=== PATIENT | female | born 1940 | race Caucasian/White ===

== ENCOUNTER 2020-02-19 08:35 | Emergency (ER) | payer MEDICARE, BC ==
[2020-02-19] MEDS ORDERED: Sodium Chloride 0.9% 10 ML Syringe FLUSH PRN (08:51)
--- NOTE | 2020-02-19 09:00 | EDM.PDOC ---
ED HPI GENERAL MEDICAL PROBLEM - General Chief Complaint: Chest Pain Stated Complaint: CHEST PAIN/SOB Time Seen by Provider: 02/19/20 09:00 Source of Information: Reports: Patient - History of Present Illness INITIAL COMMENTS - FREE TEXT/NARRATIVE: Sherry presents today, with a vague chest pressure, left-sided with mild radiation. She states she has not felt well for the past 2 weeks but is nonspecific in details of that. Epigastric discomfort is associated with this chest pressure sensation. It seemingly worsened at least, as a vague description that it actually developed this morning. Memory is not fully intact secondary of Alzheimer's dementia. , William, states her appetite has been going down slowly. Recent review of [place] chart for medication update 03 February 2020 is conducted . Onset: Today Duration: Hour(s): Location: Reports: Chest Quality: Reports: Dull, Pressure Severity: Moderate Improves with: Reports: None Worsens with: Reports: None Context: Reports: Activity Associated Symptoms: Reports: Confusion, Loss of Appetite, Shortness of Breath - Related Data Allergies Allergy/AdvReac Type Severity Reaction Status Date / Time No Known Allergies Allergy Verified 06/12/16 14:21 Home Meds: Home Meds Rosuvastatin Calcium [Crestor] 40 mg PO DAILY 06/09/16 [History] clonazePAM [Clonazepam] 0.5 mg PO BID PRN 06/09/16 [History] Diclofenac Sodium [IJD: Diclofenac Sodium] 75 mg PO .TWICE DAILY W MEALS #30 tab.ec 06/11/16 [Rx] Acetaminophen 500 - 1,000 mg PO Q4H PRN 02/19/20 [History] Donepezil HCl [Aricept] 10 mg PO BEDTIME 02/19/20 [History] Escitalopram Oxalate [Lexapro] 20 mg PO DAILY 02/19/20 [History] Melatonin 3 mg PO BEDTIME 02/19/20 [History] Memantine HCl [Namenda Xr] 21 mg PO DAILY 02/19/20 [History] Omeprazole 20 mg PO ACBREAKFAST 02/19/20 [History] buPROPion HCL [Bupropion Xl] 150 mg PO DAILY 02/19/20 [History] lisinopriL [Lisinopril] 10 mg PO DAILY 30 Days #30 tablet 02/19/20 [Rx] traZODone HCl [Trazodone HCl] 50 mg PO BEDTIME 02/19/20 [History] Past Medical History HEENT History: Reports: None Cardiovascular History: Reports: Aneurysm, Hypertension Respiratory History: Reports: None Gastrointestinal History: Reports: Gastritis, GERD Genitourinary History: Reports: UTI, Recurrent, Other (See Below) Other Genitourinary History: has to cath herself to pass urine, had mesh placed for fallen bladder 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: Endometrial Ablation, Endometriosis Musculoskeletal History: Reports: Back Pain, Chronic Neurological History: Reports: None, Alzheimers Disease Psychiatric History: Reports: Anxiety, Depression Endocrine/Metabolic History: Reports: Hypothyroidism Oncologic (Cancer) History: Reports: Cervix Dermatologic History: Reports: None - Infectious Disease History Infectious Disease History: Reports: Measles, Mumps - Past Surgical History Head Surgeries/Procedures: Reports: None HEENT Surgical History: Reports: None Cardiovascular Surgical History: Reports: None Respiratory Surgical History: Reports: None GI Surgical History: Reports: Colonoscopy, Hernia, Inguinal Female Surgical History: Reports: Hysterectomy, Other (See Below) Musculoskeletal Surgical History: Reports: Other (See Below) (Back surgeries, fusion) Oncologic Surgical History: Reports: Other (See Below) (Hysterectomy and treatments for cervical cancer and endometrial cancer.) - Past Imaging History Past Imaging History: Reports: Bone Scan, CAT Scan, Mammogram, Xray Social & Family History - Family History Family Medical History: Noncontributory - Caffeine Use Caffeine Use: Reports: Coffee, Soda Caffeine Use Comment: 4 drinks/day ED ROS GENERAL - Review of Systems Review Of Systems: See Below Constitutional: Reports: Weakness HEENT: Reports: No Symptoms Respiratory: Reports: Shortness of Breath Cardiovascular: Reports: Chest Pain Endocrine: Reports: No Symptoms GI/Abdominal: Reports: Abdominal Pain : Reports: No Symptoms Musculoskeletal: Reports: Back Pain, Leg Pain Skin: Reports: No Symptoms Neurological: Reports: Confusion, Other (memory issues) Psychiatric: Reports: Anxiety, Depression Hematologic/Lymphatic: Reports: No Symptoms Immunologic: Reports: No Symptoms ED EXAM, GENERAL - Physical Exam Exam: See Below Free Text/Narrative:: Alert oriented to the facility, cheerful conversing freely. HEENT is negative to discharge nor deformity. PERRLA no icterus no injection There is no involvement of the auditory canals with mild cerumen in the nonobstructive appearance. No tympanic membrane involvement. [place] moist mucous membranes with no erythema nor exudate. Dentition shows caries and erosion. Neck is soft supple no lymphadenopathy, I do not appreciate any JVD nor carotid bruit. Thorax is slightly diminished at the bases with no wheezes no crackles. Generalized tenderness not specific to palpation nor location is acknowledged. Cardiac is S1-S2 grade 1 systolic murmur heard at the base. Abdomen is soft bowel sounds are present there is tenderness to the epigastric as well as upper left and mid region to palpation. There is no tenderness to percussion. Mild tenderness in the right upper quadrant to deep inspiration but is limited. There is no lower quadrant pain no rebound tenderness. There is trace edema to the lower extremities nonpitting in nature skin is warm and dry. She moves her extremities about with no difficulty radial pulse correlates with apical heart rate. When asked specifically of her discomfort she states she is unable to point to the area of concern as it is "somewhat all over." EKG INTERPRETATION EKG Date: 02/19/20 Time: 08:49 Comparison: Other: (Prior images not available for visual comparison but waveform interpretation shows no significant changes in the previous interpretation by Dr. Dali Muhammad on 07-24-2016) Course - Vital Signs Last Recorded V/S: Last Vital Signs Temp 36.9 C 02/19/20 09:03 Pulse 69 02/19/20 09:03 Resp 20 02/19/20 09:03 BP 178/90 H 02/19/20 11:40 Pulse Ox 95 02/19/20 09:03 - Orders/Labs/Meds Orders: Active Orders 24 hr Category Date Time Status EKG Documentation Completion [RC] ASDIRECTED Care 02/19/20 08:52 Active Peripheral IV Care [RC] . DIRECTED Care 02/19/20 08:52 Active CULTURE URINE [RM] Stat Lab 02/19/20 10:03 Received Sodium Chloride 0.9% [Saline Flush] Med 02/19/20 08:51 Active 10 ml FLUSH Q8HR PRN Peripheral IV Insertion Adult [OM.PC] Routine Oth 02/19/20 08:51 Ordered EKG 12 Lead [EK] Stat Ther 02/19/20 08:51 Ordered Medication Orders Sodium Chloride (Saline Flush) 10 ml FLUSH Q8HR PRN PRN Reason: keep vein open Last Admin: 02/19/20 08:57 Dose: 10 ml Documented by: RACHEL Labs: Laboratory Tests 02/19/20 02/19/20 02/19/20 Range/Units 08:57 08:57 08:57 WBC 3.76 L (5.00-10.00) 10^3/uL RBC 4.74 (3.80-5.50) 10^6/uL Hgb 13.6 (12.0-16.0) g/dL Hct 42.1 (37.0-47.0) % MCV 88.8 (82.0-92.0) fL MCH 28.7 (27.0-31.0) pg MCHC 32.3 (32.0-36.0) g/dL RDW 12.7 (11.5-14.5) % Plt Count 179 (150-400) 10^3/uL MPV 11.4 H (7.4-10.4) fL Immature Gran % (Auto) 0.3 (0.0-5.0) % Neut % (Auto) 61.3 (50.0-70.0) % Lymph % (Auto) 23.7 (20.0-40.0) % [place] % (Auto) 9.6 H (2.0-8.0) % Eos % (Auto) 4.0 H (1.0-3.0) % Baso % (Auto) 1.1 H (0.0-1.0) % Neut # (Auto) 2.31 L (2.50-7.00) 10^3/uL Lymph # (Auto) 0.89 L (1.00-4.00) 10^3/uL [place] # (Auto) 0.36 (0.10-0.80) 10^3/uL Eos # (Auto) 0.15 (0.10-0.30) 10^3/uL Baso # (Auto) 0.04 (0.00-0.10) 10^3/uL Immature Gran # (Auto) 0.01 (0.00-0.50) 10^3/uL D-Dimer, Quantitative 181 (<400) ng/mL Sodium 143 (136-145) mmol/L Potassium 4.3 (3.3-5.3) mmol/L Chloride 108 (98-115) mmol/L Carbon Dioxide 27.6 (21.0-32.0) mmol/L Anion Gap 11.7 (5-15) mmol/L BUN 20 (6-25) mg/dL Creatinine 0.78 (0.51-1.17) mg/dL Est Cr Clr Drug Dosing 51.33 mL/min Estimated GFR (MDRD) > 60 mL/min Glucose 97 (75 - 99) mg/dL Calcium 8.2 L (8.7-10.3) mg/dL Total Bilirubin 0.4 (0.2-1.0) mg/dL AST 24 (15-37) U/L ALT 20 (12-78) U/L Alkaline Phosphatase 59 (46-116) IU/L Creatine Kinase 133 (26-276) U/L CK-MB (CK-2) 1.60 (0.00-4.30) ng/mL Troponin I 0.06 (0.00-0.070) ng/mL B-Natriuretic Peptide 62 (0-100) pg/mL Total Protein 6.7 (6.4-8.2) g/dL Albumin 3.26 (3.00-4.80) g/dL Specimen Type Urine Color (YELLOW) Urine Appearance (CLEAR) Urine pH (5.0-9.0) Ur Specific [place] (1.005-1.030) Urine Protein (NEGATIVE) mg/dL Urine Glucose (UA) (NEGATIVE) mg/dL Urine Ketones (NEGATIVE) mg/dL Urine Occult Blood (NEGATIVE) Urine Nitrite (NEGATIVE) Urine Bilirubin (NEGATIVE) Urine Urobilinogen (0.2-1.0) E.U./dL Ur Leukocyte Esterase (NEGATIVE) Urine RBC (0-5) /HPF Urine WBC (0-5) /HPF Ur Epithelial Cells /LPF Urine Bacteria (NONE TO FEW) /HPF 02/19/20 Range/Units 10:03 WBC (5.00-10.00) 10^3/uL RBC (3.80-5.50) 10^6/uL Hgb (12.0-16.0) g/dL Hct (37.0-47.0) % MCV (82.0-92.0) fL MCH (27.0-31.0) pg MCHC (32.0-36.0) g/dL RDW (11.5-14.5) % Plt Count (150-400) 10^3/uL MPV (7.4-10.4) fL Immature Gran % (Auto) (0.0-5.0) % Neut % (Auto) (50.0-70.0) % Lymph % (Auto) (20.0-40.0) % [place] % (Auto) (2.0-8.0) % Eos % (Auto) (1.0-3.0) % Baso % (Auto) (0.0-1.0) % Neut # (Auto) (2.50-7.00) 10^3/uL Lymph # (Auto) (1.00-4.00) 10^3/uL [place] # (Auto) (0.10-0.80) 10^3/uL Eos # (Auto) (0.10-0.30) 10^3/uL Baso # (Auto) (0.00-0.10) 10^3/uL Immature Gran # (Auto) (0.00-0.50) 10^3/uL D-Dimer, Quantitative (<400) ng/mL Sodium (136-145) mmol/L Potassium (3.3-5.3) mmol/L Chloride (98-115) mmol/L Carbon Dioxide (21.0-32.0) mmol/L Anion Gap (5-15) mmol/L BUN (6-25) mg/dL Creatinine (0.51-1.17) mg/dL Est Cr Clr Drug Dosing mL/min Estimated GFR (MDRD) mL/min Glucose (75 - 99) mg/dL Calcium (8.7-10.3) mg/dL Total Bilirubin (0.2-1.0) mg/dL AST (15-37) U/L ALT (12-78) U/L Alkaline Phosphatase (46-116) IU/L Creatine Kinase (26-276) U/L CK-MB (CK-2) (0.00-4.30) ng/mL Troponin I (0.00-0.070) ng/mL B-Natriuretic Peptide (0-100) pg/mL Total Protein (6.4-8.2) g/dL Albumin (3.00-4.80) g/dL Specimen Type [place] Urine Color Yellow (YELLOW) Urine Appearance Slightly cloudy H (CLEAR) Urine pH 7.0 (5.0-9.0) Ur Specific [place] 1.025 (1.005-1.030) Urine Protein Negative (NEGATIVE) mg/dL Urine Glucose (UA) Negative (NEGATIVE) mg/dL Urine Ketones Negative (NEGATIVE) mg/dL Urine Occult Blood Trace-intact H (NEGATIVE) Urine Nitrite Positive H (NEGATIVE) Urine Bilirubin Negative (NEGATIVE) Urine Urobilinogen 0.2 (0.2-1.0) E.U./dL Ur Leukocyte Esterase Small H (NEGATIVE) Urine RBC 5-10 H (0-5) /HPF Urine WBC 20-30 H (0-5) /HPF Ur Epithelial Cells Not seen /LPF Urine Bacteria Many H (NONE TO FEW) /HPF Meds: Medications Generic Name Dose Route Start Last Admin Trade Name Freq PRN Reason Stop Dose Admin Sodium Chloride 10 ml 02/19/20 08:51 02/19/20 08:57 Saline Flush FLUSH 10 ml Q8HR PRN Administration keep vein open Discontinued Medications Generic Name Dose Route Start Last Admin Trade Name Freq PRN Reason Stop Dose Admin Lisinopril 10 mg 02/19/20 11:35 02/19/20 11:40 Prinivil PO 02/19/20 11:36 10 mg ONETIME ONE Administration - Re-Assessments/Exams Free Text/Narrative Re-Assessment/Exam: 02/19/20 10:27 With normal laboratory analysis returning EKG showing past cardiac involvement likely, her dementia leaves room and the historical component for details. Secondary of continued abdominal discomfort and a history of decrease in appetite we will perform CT the abdomen pelvis with contrast to rule out any causation factors. Departure - Departure Time of Disposition: 11:56 Disposition: Home, Self-Care 01 Condition: Good Clinical Impression: Abdominal pain, Alzheimer's dementia, Self-catheterizes urinary bladder, Hypertension, Diverticulosis of large intestine, Abdominal aortic aneurysm (AAA) 35 to 39 mm in diameter - Discharge Information *PRESCRIPTION DRUG MONITORING PROGRAM REVIEWED*: Not Applicable *COPY OF PRESCRIPTION DRUG MONITORING REPORT IN PATIENT DEJAN: Not Applicable Prescriptions: lisinopriL [Lisinopril] 10 mg PO DAILY 30 Days #30 tablet Referrals: Nitin Silveira NP [Nurse Practitioner] - Forms: ED Department Discharge Additional Instructions: The results of testing today show no significant changes in your overall status. The urine is being cultured, and if shows significant concern will be called to start an antibiotic. We will start lisinopril 10 mg daily, for your elevated blood pressure. This will help control your blood pressure as well as protect your kidney function. Prescription has been sent to [facility]. Continue all of your other medications as previously directed. Continue your diet and water drinking as previous. You should schedule a recheck appointment with Nitin Silveira at the [facility] sometime in the next 1 to 2 weeks as able to schedule. Call or return to the emergency department if concerns should develop. Sepsis Event Note (ED) - Focused Exam Vital Signs: Vital Signs Temp Pulse Resp BP BP Pulse Ox 02/19/20 11:40 178/90 H 02/19/20 09:03 36.9 C 69 20 201/102 H 95 - Problem List & Annotations (1) Chest pain at rest SNOMED Code(s): 6246144 Code(s): R07.9 - CHEST PAIN, UNSPECIFIED Status: Acute Priority: High (2) Abdominal pain SNOMED Code(s): 08736462 Code(s): R10.9 - UNSPECIFIED ABDOMINAL PAIN Status: Chronic Priority: Medium Qualifiers: Abdominal location: upper abdomen, unspecified Qualified Code(s): R10.10 - Upper abdominal pain, unspecified (3) Alzheimer's dementia SNOMED Code(s): 80458176 Code(s): G30.9 - ALZHEIMER'S DISEASE, UNSPECIFIED; F02.80 - DEMENTIA IN OTH DISEASES CLASSD ELSWHR W/O BEHAVRL DISTURB Status: Chronic Priority: Medium Qualifiers: Alzheimer's disease onset: unspecified onset Dementia behavioral disturban ce: without behavioral disturbance Qualified Code(s): G30.9 - Alzheimer's disease, unspecified; F02.80 - Dementia in other diseases classified elsewhere without behavioral disturbance (4) Generalized body aches SNOMED Code(s): 71029057 Code(s): R52 - PAIN, UNSPECIFIED Status: Chronic Priority: Medium (5) Back pain SNOMED Code(s): 757600613 Code(s): M54.9 - DORSALGIA, UNSPECIFIED Status: Chronic Priority: Medium Qualifiers: Back pain location: low back pain Back pain laterality: bilateral Sciatica presence: unspecified whether sciatica present (6) Self-catheterizes urinary bladder SNOMED Code(s): 556762151 Code(s): Z78.9 - OTHER SPECIFIED HEALTH STATUS Status: Chronic Priority: Medium (7) Cystitis SNOMED Code(s): 86881092 Code(s): N30.90 - CYSTITIS, UNSPECIFIED WITHOUT HEMATURIA Status: Chronic Priority: Medium (8) Hypertension SNOMED Code(s): 45399570 Code(s): I10 - ESSENTIAL (PRIMARY) HYPERTENSION Status: Chronic Priority: Medium Qualifiers: Hypertension type: essential hypertension Qualified Code(s): I10 - Essential (primary) hypertension (9) Diverticulosis of large intestine SNOMED Code(s): 272458816 Code(s): K57.30 - DVRTCLOS OF LG INT W/O PERFORATION OR ABSCESS W/O BLEEDING Status: Chronic Priority: Medium Qualifiers: Diverticulosis bleeding: diverticulosis without bleeding Qualified Code(s): K57.30 - Diverticulosis of large intestine without perforation or abscess without bleeding (10) Abdominal aortic aneurysm SNOMED Code(s): 767315642 Code(s): I71.4 - ABDOMINAL AORTIC ANEURYSM, WITHOUT RUPTURE Status: Acute Qualifiers: Presence of rupture: without rupture Qualified Code(s): I71.4 - Abdominal aortic aneurysm, without rupture (11) Abdominal aortic aneurysm (AAA) 35 to 39 mm in diameter SNOMED Code(s): 068432879 Code(s): I71.4 - ABDOMINAL AORTIC ANEURYSM, WITHOUT RUPTURE Status: Chronic Priority: Medium - Problem List Review Problem List Initiated/Reviewed/Updated: Yes - My Orders Last 24 Hours: My Active Orders 02/19/20 08:51 Sodium Chloride 0.9% [Saline Flush] 10 ml FLUSH Q8HR PRN Peripheral IV Insertion Adult [OM.PC] Routine EKG 12 Lead [EK] Stat 02/19/20 08:52 EKG Documentation Completion [RC] ASDIRECTED Peripheral IV Care [RC] . DIRECTED 02/19/20 10:03 CULTURE URINE [RM] Stat - Assessment/Plan Last 24 Hours: My Active Orders 02/19/20 08:51 Sodium Chloride 0.9% [Saline Flush] 10 ml FLUSH Q8HR PRN Peripheral IV Insertion Adult [OM.PC] Routine EKG 12 Lead [EK] Stat 02/19/20 08:52 EKG Documentation Completion [RC] ASDIRECTED Peripheral IV Care [RC] . DIRECTED 02/19/20 10:03 CULTURE URINE [] Stat Assessment:: The results of testing today show no significant changes in your overall status. We will start lisinopril 10 mg daily, for your elevated blood pressure. This will help control your blood pressure as well as protect your kidney function. Prescription has been sent to [facility]. Continue all of your other medications as previously directed. Continue your diet and water drinking as previous. You should schedule a recheck appointment with Nitin Silveira at the [facility] sometime in the next 1 to 2 weeks as able to schedule. Call or return to the emergency department if concerns should develop. Plan: The results of testing today show no significant changes in your overall status. The urine is being cultured, and if shows significant concern will be called to start an antibiotic. We will start lisinopril 10 mg daily, for your elevated blood pressure. This will help control your blood pressure as well as protect your kidney function. Prescription has been sent to [facility]. Continue all of your other medications as previously directed. Continue your diet and water drinking as previous. You should schedule a recheck appointment with Nitin Silveira at the [facility] sometime in the next 1 to 2 weeks as able to schedule. Call or return to the emergency department if concerns should develop.
[2020-02-19 09:13] VITALS: PULSE 69
--- NOTE | 2020-02-19 10:45 | CR ---
[id number] RAD/RAD Chest PA And Lateral EXAM: RAD Chest PA And Lateral CLINICAL DATA: CHEST PAIN COMPARISON: CORRELATION IS MADE WITH APRIL 26, 2017 FINDINGS: The lungs are clear. The cardiomediastinal contour is enlarged but stable. The regional bones and soft tissues are unremarkable. IMPRESSION: NO ACUTE PROCESS. Wes Nix MD 02/19/20 1044 Thank you for allowing us to participate in the care of your patient.
--- NOTE | 2020-02-19 11:02 | CT ---
[id number] CT/CT Abdomen Pelvis W IV EXAM: CT Abdomen Pelvis W IV CLINICAL DATA: ABDOMINAL PAIN COMPARISON: CORRELATION IS MADE WITH APRIL 26, 2017 FINDINGS: Early aneurysmal dilatation of the abdominal aorta is seen The aorta is 3.8 cm in greatest diameter There is diverticulosis of the large bowel There is no saima diverticulitis. There is air in the urinary bladder. Clinical correlation here is needed. Question is raised if there has been catheterization of the urinary bladder. If there has been no catheterization, then a fistula be suspected. The liver and spleen, kidneys and adrenals, and the pancreas otherwise are unremarkable. The gallbladder is not distended IMPRESSION: DIVERTICULAR DISEASE AIR IN URINARY BLADDER SEE DISCUSSION ABOVE Wes Nix MD 02/19/20 9590 Thank you for allowing us to participate in the care of your patient.
[2020-02-19 11:22] LABS: ANION GAP 11.7 mmol/L (5-15); CHLORIDE,CL 108 mmol/L (98-115); SODIUM,NA 143 mmol/L (136-145)
[2020-02-19] MEDS ORDERED: Lisinopril 10 MG Tab PO ONE (11:35)
[2020-02-19 11:40] VITALS: BP 178/90
== END 2020-02-19 12:10 | disposition home or self-care (01) ==
LOC: KA.ED 08:35
DX: K57.30 Diverticulosis of large intestine without perforation or abscess without bleeding (principal); I71.4 Abdominal aortic aneurysm, without rupture; G30.9 Alzheimer's disease, unspecified; F02.80 Dementia in other diseases classified elsewhere, unspecified severity, without behavioral disturbance, psychotic disturbance, mood disturbance, and anxiety; I10 Essential (primary) hypertension; K21.9 Gastro-esophageal reflux disease without esophagitis; F41.9 Anxiety disorder, unspecified; F32.9 Major depressive disorder, single episode, unspecified; Z79.899 Other long term (current) drug therapy
CPT/HCPCS: 71046; 74177; 80053; 81001; 82550; 82553; 83880; 84484; 85025; 85379; 87086; 87088; 87186; 93005; 99284; 99285-25; A9270-GY

== ENCOUNTER 2020-07-29 04:45 | Emergency (ER) | payer MEDICARE, BC ==
[2020-07-29] MEDS ORDERED: methylPREDNISolone Sodium Succinate 125 MG/2 ML SDV IVPUSH ONE (05:09)
[2020-07-29] MEDS ORDERED: Ketorolac 30 MG/ML SDV IVPUSH ONE (05:09)
[2020-07-29] MEDS ORDERED: LORazepam 2 MG/ML SDV IVPUSH ONE (05:10)
--- NOTE | 2020-07-29 05:24 | EDM.PDOC ---
ED HPI GENERAL MEDICAL PROBLEM - General Chief Complaint: Back Pain or Injury Stated Complaint: LOW BACK PAIN Time Seen by Provider: 07/29/20 05:00 Source of Information: Reports: Patient, Family History Limitations: Reports: No Limitations - History of Present Illness INITIAL COMMENTS - FREE TEXT/NARRATIVE: 80 YO WF PRESENTS TO ER WITH COMPLAINTS OF LOW BACK PAIN. PT REPORTS PAIN HAS BEEN GOING ON FOR AWHILE SHE DEALS WITH CHRONIC LOW BACK PAIN FROM MULTIPLE BACK SURGERIES, BUT TONIGHT IT BECAME MORE SEVERE PROMPTING ER VISIT. PT REPORTS PAIN IMPROVES WHILE LYING STILL AND WORSENS WITH MOVEMENT. PT DENIES ANY WEAKNESS OR NUMBNESS. PT DENIES ANY BOWEL OR BLADDER INCONTINENCE. PT DENIES DYSURIA, OR URINARY URGENCY, BUT REPORTS INCREASED FREQUENCY. PT DENIES ANY SADDLE ANESTHESIA OR RADIATING PAIN. PT STATES PAIN IS WORSE WITH AMBULATION. PT DENIES FEVER/CHILLS OR NAUSEA/VOMITING. Onset: Today Duration: Chronic Location: Reports: Back Quality: Reports: Ache Severity: Moderate Improves with: Reports: Rest Worsens with: Reports: Movement Associated Symptoms: Reports: No Other Symptoms. Denies: Chest Pain, Fever/Chills, Nausea/Vomiting, Shortness of Breath, Weakness lower back Pain Score (Numeric/FACES): 10 - Related Data Allergies Allergy/AdvReac Type Severity Reaction Status Date / Time No Known Allergies Allergy Verified 07/29/20 05:07 Home Meds: Home Meds Rosuvastatin Calcium [Crestor] 40 mg PO DAILY 06/09/16 [History] clonazePAM [Clonazepam] 0.5 mg PO BID PRN 06/09/16 [History] Acetaminophen 500 - 1,000 mg PO Q4H PRN 02/19/20 [History] Donepezil HCl [Aricept] 10 mg PO BEDTIME 02/19/20 [History] Escitalopram Oxalate [Lexapro] 20 mg PO DAILY 02/19/20 [History] Melatonin 3 mg PO BEDTIME 02/19/20 [History] Memantine HCl [Namenda Xr] 21 mg PO DAILY 02/19/20 [History] Omeprazole 20 mg PO ACBREAKFAST 02/19/20 [History] buPROPion HCL [Bupropion Xl] 150 mg PO DAILY 02/19/20 [History] traZODone HCl [Trazodone HCl] 50 mg PO BEDTIME 02/19/20 [History] Diclofenac Sodium [IJD: Diclofenac Sodium] 75 mg PO .TWICE DAILY W MEALS PRN 07/29/20 [History] Nitrofurantoin Monohyd/M-Cryst [Macrobid 100 mg Capsule] 100 mg PO BID #14 capsule 07/29/20 [Rx] methylPREDNISolone [Medrol Dose Pack] 84 mg PO DAILY 5 Days dospk 07/29/20 [Rx] Past Medical History HEENT History: Reports: None Cardiovascular History: Reports: Aneurysm, Hypertension Respiratory History: Reports: None Gastrointestinal History: Reports: Gastritis, GERD Other Gastrointestinal History: H.Pylori Genitourinary History: Reports: UTI, Recurrent, Other (See Below) Other Genitourinary History: has to cath herself to pass urine, had mesh placed for fallen bladder 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: Endometrial 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, Endometriosis Musculoskeletal History: Reports: Back Pain, Chronic Neurological History: Reports: None, Alzheimers Disease Psychiatric History: Reports: Anxiety, Depression Endocrine/Metabolic History: Reports: Hypothyroidism Oncologic (Cancer) History: Reports: Cervix Other Oncologic History: endometrial Dermatologic History: Reports: None - Infectious Disease History Infectious Disease History: Reports: Measles, Mumps - Past Surgical History Head Surgeries/Procedures: Reports: None HEENT Surgical History: Reports: None Cardiovascular Surgical History: Reports: None Respiratory Surgical History: Reports: None GI Surgical History: Reports: Colonoscopy, Hernia, Inguinal Female Surgical History: Reports: Hysterectomy, Other (See Below) Musculoskeletal Surgical History: Reports: Other (See Below) (Back surgeries, fusion) Oncologic Surgical History: Reports: Other (See Below) (Hysterectomy and treatments for cervical cancer and endometrial cancer.) - Past Imaging History Past Imaging History: Reports: Bone Scan, CAT Scan, Mammogram, Xray Social & Family History - Family History Family Medical History: No Pertinent Family History - Caffeine Use Caffeine Use: Reports: Coffee, Soda Caffeine Use Comment: 4 drinks/day ED ROS GENERAL - Review of Systems Review Of Systems: See Below Constitutional: Reports: No Symptoms HEENT: Reports: No Symptoms Respiratory: Reports: No Symptoms Cardiovascular: Reports: No Symptoms Endocrine: Reports: No Symptoms GI/Abdominal: Reports: No Symptoms : Reports: Frequency Musculoskeletal: Reports: Back Pain Skin: Reports: No Symptoms Neurological: Reports: No Symptoms. Denies: Numbness, Paresthesia, Weakness Psychiatric: Reports: No Symptoms Hematologic/Lymphatic: Reports: No Symptoms Immunologic: Reports: No Symptoms ED EXAM,LOWER BACK PAIN/INJURY - Physical Exam Exam: See Below Exam Limited By: No Limitations General Appearance: Alert, WD/WN, No Apparent Distress Head: Atraumatic, Normocephalic Neck: Normal Inspection, Supple, Non-Tender, Full Range of Motion Respiratory/Chest: No Respiratory Distress, Lungs Clear, Normal Breath Sounds, No Accessory Muscle Use, Chest Non-Tender Cardiovascular: Normal Peripheral Pulses, Regular Rate, Rhythm, No Edema, No Gallop, No JVD, No Murmur, No Rub GI/Abdominal: Normal Bowel Sounds, Soft, Non-Tender, No Organomegaly, No D istention, No Abnormal Bruit, No Mass Back Exam: Muscle Spasm, Paraspinal Tenderness. No: CVA Tenderness (L), CVA Tenderness (R) Extremities: Normal Inspection, Normal Range of Motion, Non-Tender, No Pedal Edema, Normal Capillary Refill Neurological: Alert, Normal Mood/Affect, Normal Dorsiflexion, CN II-XII Intact, Normal Plantar Flexion, Normal Gait, Normal Reflexes, No Motor/Sensory Deficits, Oriented x 3 Psychiatric: Normal Affect, Normal Mood Skin Exam: Warm, Dry, Intact, Normal Color, No Rash Lymphatic: No Adenopathy Course - Vital Signs Last Recorded V/S: Last Vital Signs Temp 98.1 F 07/29/20 04:45 Pulse 60 07/29/20 05:30 Resp 14 07/29/20 05:30 BP 172/78 H 07/29/20 05:30 Pulse Ox 91 L 07/29/20 05:30 - Orders/Labs/Meds Orders: Active Orders 24 hr Category Date Time Status UA W/MANJULA RFLX IF INDICATED [URIN] Stat Lab 07/29/20 06:34 Ordered traMADol [Ultram] Med 07/29/20 06:37 Once 500 mg PO ONETIME ONE Medication Orders Tramadol HCl (Ultram) 500 mg PO ONETIME ONE Stop: 07/29/20 06:38 Meds: Medications Generic Name Dose Route Start Last Admin Trade Name Freq PRN Reason Stop Dose Admin Tramadol HCl 500 mg 07/29/20 06:37 Ultram PO 07/29/20 06:38 ONETIME ONE Discontinued Medications Generic Name Dose Route Start Last Admin Trade Name Freq PRN Reason Stop Dose Admin Ketorolac Tromethamine 30 mg 07/29/20 05:09 07/29/20 05:27 Toradol IVPUSH 07/29/20 05:10 30 mg ONETIME ONE Administration Lorazepam 1 mg 07/29/20 05:10 07/29/20 05:30 Ativan IVPUSH 07/29/20 05:11 1 mg ONETIME ONE Administration Methylprednisolone Sodium Succinate 125 mg 07/29/20 05:09 07/29/20 05:24 Solu-Medrol IVPUSH 07/29/20 05:10 125 mg ONETIME ONE Administration Departure - Departure Time of Disposition: 07:00 Disposition: Home, Self-Care 01 Condition: Good Clinical Impression: Low back pain Qualifiers: Chronicity: chronic Back pain laterality: bilateral Sciatica presence: without sciatica Qualified Code(s): M54.5 - Low back pain; G89.29 - Other chronic pain UTI (urinary tract infection) Qualifiers: Urinary tract infection type: acute cystitis - Discharge Information Prescriptions: Nitrofurantoin Monohyd/M-Cryst [Macrobid 100 mg Capsule] 100 mg PO BID #14 capsule methylPREDNISolone [Medrol Dose Pack] 84 mg PO DAILY 5 Days dospk Instructions: Chronic Back Pain, [id number] Referrals: Nitin Silveira, RESIDENTIAL HOUSEKEEPER [Nurse Practitioner] - Forms: ED Department Discharge Additional Instructions: 1. DISCHARGE HOME 2. MEDROL DOSE APARNA 3. ULTRAM 50MG EVERY 4-6 HOURS NEEDED FOR PAIN #10 4. FOLLOW UP IN CLINIC FOR FURTHER EVALUATION AND TREATMENT 5. RETURN TO ER FOR WORSENING SYMPTOMS 6. MACROBID 100MG TWICE/DAY X 7 DAYS FOR UTI Sepsis Event Note (ED) - Evaluation Sepsis Screening Result: No Definite Risk - Focused Exam Vital Signs: Vital Signs Temp Pulse Resp BP Pulse Ox 07/29/20 05:30 60 14 172/78 H 91 L 07/29/20 05:16 61 14 190/79 H 92 L 07/29/20 05:00 60 16 179/80 H 95 07/29/20 04:45 98.1 F 68 18 193/86 H 95 - My Orders Last 24 Hours: My Active Orders 07/29/20 06:34 UA W/MANJULA RFLX IF INDICATED [URIN] Stat 07/29/20 06:37 traMADol [Ultram] 500 mg PO ONETIME ONE - Assessment/Plan Last 24 Hours: My Active Orders 07/29/20 06:34 UA W/MANJULA RFLX IF INDICATED [URIN] Stat 07/29/20 06:37 traMADol [Ultram] 500 mg PO ONETIME ONE Assessment:: 1. LOW BACK PAIN Plan: 1. DISCHARGE HOME 2. MEDROL DOSE APARNA 3. ULTRAM 50MG EVERY 4-6 HOURS NEEDED FOR PAIN #10 4. FOLLOW UP IN CLINIC FOR FURTHER EVALUATION AND TREATMENT 5. RETURN TO ER FOR WORSENING SYMPTOMS 6. MACROBID 100MG TWICE/DAY X 7 DAYS
[2020-07-29 05:36] VITALS: BP 172/78; PULSE 60
[2020-07-29] MEDS ORDERED: traMADol 50 MG Tab PO ONE (06:37)
[2020-07-29] MEDS ORDERED: Nitrofurantoin Monohydrate/Macrocrystalline 100 MG Cap PO ONE (06:53)
== END 2020-07-29 07:25 | disposition home or self-care (01) ==
LOC: KA.ED 04:45
DX: N30.00 Acute cystitis without hematuria (principal); G89.29 Other chronic pain; M54.5 Low back pain; K21.9 Gastro-esophageal reflux disease without esophagitis; G30.9 Alzheimer's disease, unspecified; F02.80 Dementia in other diseases classified elsewhere, unspecified severity, without behavioral disturbance, psychotic disturbance, mood disturbance, and anxiety; Z79.899 Other long term (current) drug therapy
CPT/HCPCS: 81001; 96374; 96375; 99283; 99283-25; A9270-GY; J1885; J2060; J2930

== ENCOUNTER 2020-09-10 10:22 | Emergency (ER) | payer MEDICARE, BC ==
--- NOTE | 2020-09-10 10:52 | EDM.PDOC ---
ED HPI GENERAL MEDICAL PROBLEM - General Stated Complaint: NOT FEELING WELL Time Seen by Provider: 09/10/20 10:36 Source of Information: Reports: Patient, Significant Other History Limitations: Reports: No Limitations - History of Present Illness INITIAL COMMENTS - FREE TEXT/NARRATIVE: Patient presents with decreased appetite, abdominal pain and constipation. She has some dementia and they aren't sure when the last BM was but she usually has a BM daily and now her says she goes into the bathroom every 15 minutes feeling like she needs to pass stool but can't. - Related Data Allergies Allergy/AdvReac Type Severity Reaction Status Date / Time No Known Allergies Allergy Verified 07/29/20 05:07 Home Meds: Home Meds Rosuvastatin Calcium [Crestor] 40 mg PO DAILY 06/09/16 [History] clonazePAM [Clonazepam] 0.5 mg PO BID PRN 06/09/16 [History] Acetaminophen 500 - 1,000 mg PO Q4H PRN 02/19/20 [History] Donepezil HCl [Aricept] 10 mg PO BEDTIME 02/19/20 [History] Escitalopram Oxalate [Lexapro] 20 mg PO DAILY 02/19/20 [History] Melatonin 3 mg PO BEDTIME 02/19/20 [History] Memantine HCl [Namenda Xr] 21 mg PO DAILY 02/19/20 [History] Omeprazole 20 mg PO ACBREAKFAST 02/19/20 [History] buPROPion HCL [Bupropion Xl] 150 mg PO DAILY 02/19/20 [History] traZODone HCl [Trazodone HCl] 50 mg PO BEDTIME 02/19/20 [History] Diclofenac Sodium [IJD: Diclofenac Sodium] 75 mg PO .TWICE DAILY W MEALS PRN 07/29/20 [History] Nitrofurantoin Monohyd/M-Cryst [Macrobid 100 mg Capsule] 100 mg PO BID #14 capsule 07/29/20 [Rx] methylPREDNISolone [Medrol Dose Pack] 84 mg PO DAILY 5 Days dospk 07/29/20 [Rx] Past Medical History HEENT History: Reports: None Cardiovascular History: Reports: Aneurysm, High Cholesterol, Hypertension Respiratory History: Reports: None Gastrointestinal History: Reports: Gastritis, GERD Other Gastrointestinal History: H.Pylori Genitourinary History: Reports: UTI, Recurrent, Other (See Below) Other Genitourinary History: has to cath herself to pass urine, had mesh placed for fallen bladder 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: Endometrial Ablation, Endometriosis Musculoskeletal History: Reports: Back Pain, Chronic, Osteoarthritis Neurological History: Reports: Alzheimers Disease Psychiatric History: Reports: Alzheimers Disease, Anxiety, Depression Endocrine/Metabolic History: Reports: Hypothyroidism, Obesity/BMI 30+ Oncologic (Cancer) History: Reports: Cervix Other Oncologic History: endometrial Dermatologic History: Reports: None - Infectious Disease History Infectious Disease History: Reports: Measles, Mumps - Past Surgical History Head Surgeries/Procedures: Reports: None HEENT Surgical History: Reports: None Cardiovascular Surgical History: Reports: None Respiratory Surgical History: Reports: None GI Surgical History: Reports: Colonoscopy, Hernia, Inguinal Female Surgical History: Reports: Cystoscopy, Hysterectomy, Salpingo- Oophorectomy, Other (See Below) Other Female Surgeries/Procedures: mesh for fallen bladder Endocrine Surgical History: Reports: None Neurological Surgical History: Reports: None Musculoskeletal Surgical History: Reports: Other (See Below) Other Musculoskeletal Surgeries/Procedures:: 6 back surgeries Oncologic Surgical History: Reports: Other (See Below) Other Oncologic Surgeries/Procedures: hysterectomy Dermatological Surgical History: Reports: None - Past Imaging History Past Imaging History: Reports: Bone Scan, CAT Scan, Mammogram, Xray Social & Family History - Family History Family Medical History: No Pertinent Family History - Caffeine Use Caffeine Use: Reports: Coffee, Soda Caffeine Use Comment: 4 drinks/day ED ROS GENERAL - Review of Systems Review Of Systems: See Below Constitutional: Reports: Malaise. Denies: Fever, Chills, Weakness, Fatigue HEENT: Denies: No Symptoms Respiratory: Denies: Shortness of Breath, Cough Cardiovascular: Denies: Chest Pain, Syncope Endocrine: Denies: Fatigue GI/Abdominal: Reports: Abdominal Pain, Constipation, Nausea. Denies: Diarrhea, Vomiting : Denies: Dysuria, Flank Pain Musculoskeletal: Reports: No Symptoms Skin: Denies: Cyanosis, Jaundice, Mottled, Pallor, Diaphoresis Neurological: Denies: Confusion, Dizziness, Headache, Seizure, Syncope, Trouble Speaking, Difficulty Walking Psychiatric: Denies: Agitation, Anxiety ED EXAM, GI/ABD - Physical Exam Exam: See Below Exam Limited By: No Limitations General Appearance: Alert, WD/WN, No Apparent Distress Eyes: Bilateral: Normal Appearance, EOMI Ears: Normal External Exam, Hearing Grossly Normal Nose: Normal Inspection, No Blood Throat/Mouth: Normal Inspection, Normal Lips, Normal Voice, No Airway Compromise Head: Atraumatic, Normocephalic Neck: Normal Inspection, Full Range of Motion Respiratory/Chest: No Respiratory Distress, Lungs Clear, Normal Breath Sounds, No Accessory Muscle Use Cardiovascular: Regular Rate, Rhythm, No Murmur GI/Abdominal Exam: Normal Bowel Sounds, Soft, No Organomegaly, No Distention, No Abnormal Bruit, Tender (left side) Rectal (Female) Exam: Normal Rectal Tone, Hemorrhoids (small, flaccid), Other (mild perirectal erythema but not tender). No: Black Stool, Bloody Stool, Fecal Impaction, Perirectal Abscess, Rectal Fissure, Tenderness Back Exam: Normal Inspection, Full Range of Motion. No: CVA Tenderness (L), CVA Tenderness (R) Extremities: Normal Inspection, Normal Range of Motion Neurological: Alert, Oriented, Normal Cognition, No Motor/Sensory Deficits Psychiatric: Normal Affect, Normal Mood Skin Exam: Warm, Dry, Intact, Normal Color, No Rash Course - Orders/Labs/Meds Labs: Laboratory Tests 09/10/20 09/10/20 Range/Units 10:40 10:40 WBC 7.94 (5.00-10.00) 10^3/uL RBC 4.52 (3.80-5.50) 10^6/uL Hgb 12.3 (12.0-16.0) g/dL Hct 39.7 (37.0-47.0) % MCV 87.8 (82.0-92.0) fL MCH 27.2 (27.0-31.0) pg MCHC 31.0 L (32.0-36.0) g/dL RDW 14.2 (11.5-14.5) % Plt Count 369 D (150-400) 10^3/uL MPV 9.6 (7.4-10.4) fL Immature Gran % (Auto) 0.3 (0.0-5.0) % Neut % (Auto) 78.1 H (50.0-70.0) % Lymph % (Auto) 11.8 L (20.0-40.0) % Page % (Auto) 8.9 H (2.0-8.0) % Eos % (Auto) 0.8 L (1.0-3.0) % Baso % (Auto) 0.1 (0.0-1.0) % Neut # (Auto) 6.20 (2.50-7.00) 10^3/uL Lymph # (Auto) 0.94 L (1.00-4.00) 10^3/uL Page # (Auto) 0.71 (0.10-0.80) 10^3/uL Eos # (Auto) 0.06 L (0.10-0.30) 10^3/uL Baso # (Auto) 0.01 (0.00-0.10) 10^3/uL Immature Gran # (Auto) 0.02 (0.00-0.50) 10^3/uL Sodium 143 (136-145) mmol/L Potassium 3.4 L (3.5-5.1) mmol/L Chloride 103 (98-107) mmol/L Carbon Dioxide 28.7 (21.0-32.0) mmol/L Anion Gap 14.7 (5-15) mmol/L BUN 14 (7-18) mg/dL Creatinine 1.01 (0.51-1.17) mg/dL Est Cr Clr Drug Dosing TNP Estimated GFR (MDRD) 53 mL/min Glucose 115 (70-140) mg/dL Calcium 9.0 (8.7-10.3) mg/dL Total Bilirubin 0.3 (0.2-1.0) mg/dL AST 15 (15-37) U/L ALT 15 (14-63) U/L Alkaline Phosphatase 93 (46-116) U/L Total Protein 7.0 (6.4-8.2) g/dL Albumin 2.41 L (3.40-5.00) g/dL - Re-Assessments/Exams Free Text/Narrative Re-Assessment/Exam: 09/10/20 12:41 Labs and xray okay. Film shows mild stool load but no significant constipation. Discussed findings with patient and her and we will check for fecal impaction. 09/10/20 13:10 Prior to POLINA patient tried the bathroom again and was able to pass a small amount of stool. We still check and ruled out fecal impaction. Discussed findings and treatment plan with patient and her . She is scheduled for colonoscopy in two weeks. Discharged to home in stable condition. Departure - Departure Time of Disposition: 13:08 Disposition: Home, Self-Care 01 Condition: Good Clinical Impression: Decrease in appetite - Discharge Information Referrals: Nitin Silveira SHOT GRINDER OPERATOR [Primary Care Provider] - Additional Instructions: Try to eat small amounts at least 3 times a day. Follow up with your PCP if still not eating in 2 days.
[2020-09-10 11:11] LABS: ANION GAP 14.7 mmol/L (5-15); CHLORIDE,CL 103 mmol/L (98-107); SODIUM,NA 143 mmol/L (136-145)
--- NOTE | 2020-09-10 11:20 | CR ---
[id number] RAD/RAD Abdomen Flat Plate 1V EXAM: RAD Abdomen Flat Plate 1V INDICATION: ABDOMINAL PAIN, CONSTIPATION. COMPARISON: CT from February 19, 2020. DISCUSSION: Unobstructed bowel gas pattern. No radiographically evident pneumoperitoneum. Colonic stool burden is mild. IMPRESSION: No acute findings in the abdomen. Rodri Oviedo MD 09/10/20 1119 Thank you for allowing us to participate in the care of your patient.
[2020-09-10 15:28] VITALS: BP 126/74; PULSE 90
== END 2020-09-10 13:50 | disposition home or self-care (01) ==
LOC: KA.ED 10:22
DX: R63.0 Anorexia (principal); R53.81 Other malaise; K59.00 Constipation, unspecified; R11.0 Nausea; E78.00 Pure hypercholesterolemia, unspecified; I10 Essential (primary) hypertension; K21.9 Gastro-esophageal reflux disease without esophagitis; M19.90 Unspecified osteoarthritis, unspecified site; G30.9 Alzheimer's disease, unspecified; F02.80 Dementia in other diseases classified elsewhere, unspecified severity, without behavioral disturbance, psychotic disturbance, mood disturbance, and anxiety; E03.9 Hypothyroidism, unspecified; E66.9 Obesity, unspecified; Z68.25 Body mass index [BMI] 25.0-25.9, adult; Z79.899 Other long term (current) drug therapy
CPT/HCPCS: 36415; 74018; 80053; 85025; 99283; 99284-25

== ENCOUNTER 2020-09-26 06:54 | Day surgery (SDC) | payer MEDICARE, BC ==
[2020-09-26] MEDS ORDERED: Sodium Chloride 0.9% 10 ML Syringe FLUSH PRN (07:00)
[2020-09-26] MEDS: Lactated Ringers 1,000 ML IV SCH (07:35)
[2020-09-26] MEDS ORDERED: Propofol 200 MG/20 ML SDV ONE (08:10)
--- NOTE | 2020-09-26 09:21 | PCM.OPNOTE ---
- General Post-Op/Procedure Note Date of Surgery/Procedure: 09/26/20 Operative Procedure(s): Attempted colonoscopy, obstruction of the rectum noted at 12 centimeters. Polyp noted at 5 cm. This flat polyp was removed using loop electrocautery. A resolution clip was placed to prevent any post polyp removal bleeding. Post-Op Diagnosis: Obstruction noted at 12 cm. Question benign, question malignant stricture. Flat polyp noted at 5 cm, removed using loop electrocautery and placement of resolution clip. Anesthesia Technique: MAC Primary Surgeon: Cliff Smith Complications: None Condition: Good Free Text/Narrative:: Preoperative diagnosis: Constipation and alteration of bowel habits. Weight loss. Early dementia. Postoperative diagnosis: As above. Polyp of the rectum, rectal stricture. Performed: Attempted colonoscopy, polypectomy. Informed consent was obtained from the patient and her regarding this procedure. She has been having increasing constipation over the last several weeks. No rectal bleeding or vomiting. All possible complications were thoroughly discussed with the patient. Infection, pain, perforation, bleeding, inability to complete the procedure etc. in case of perforation, open operation bowel resection and anastomosis etc. and even were discussed. Patient decided to proceed. IV sedation was administered by the cinder crane operator. Continuous EKG, oximetry monitoring, intermittent blood pressure and respiratory monitoring were performed throughout the procedure. An Olympus video colonoscope was introduced to the rectum and we could advance it only to 12 cm. The scope could not be advanced any further. I strongly believe there is a obstructive lesion present here. At 5 cm from the anal margin, a flat polyp was identified and this was removed using loop electrocautery. A resolution clip was placed to prevent postoperative bleeding. The patient tolerated the procedure well. Her abdomen is flat and no complication was observed during this procedure. She will need further follow-up in terms of CT enterogram, GI, possible surgical consultation etc. GI telephone consultation from Dr. Adler was obtained the. Advised imaging followed by outpatient GI consultation.
--- NOTE | 2020-09-26 11:12 | CR ---
[id number] RAD/RAD Abdomen 3V Exam: RAD Abdomen 3V Indication:CHEST AND ABDOMEN PAIN. Comparison: February 19, 2020. Discussion/Impression: Linear opacities in the left lung base not seen previously. Findings are nonspecific and most consistent with subsegmental atelectasis. Lungs are otherwise clear. Unobstructed bowel gas pattern. Surgical clips project over the lower abdomen. Rodri Oviedo MD 09/26/20 1111 Thank you for allowing us to participate in the care of your patient.
[2020-09-26] MEDS: cefTRIAXone 1 GM Vial IVPUSH ONE (13:00)
[2020-09-26 14:10] VITALS: BP 115/71; PULSE 87
== END 2020-09-26 12:45 | disposition home or self-care (01) ==
LOC: KA.SDS 06:54
PROVIDERS: ATTEND Family Medicine
DX: K62.1 Rectal polyp (principal); K62.4 Stenosis of anus and rectum; K59.00 Constipation, unspecified; F03.90 Unspecified dementia, unspecified severity, without behavioral disturbance, psychotic disturbance, mood disturbance, and anxiety; E78.00 Pure hypercholesterolemia, unspecified; I10 Essential (primary) hypertension; Z79.899 Other long term (current) drug therapy
CPT/HCPCS: 00811; 36415; 74022; 84132; 88305; J2704; J7120; U0002

== ENCOUNTER 2021-08-02 11:58 | Inpatient (IN) | payer MEDICARE, BC ==
[2021-08-02 12:47] LABS: ANION GAP 26.5 mmol/L (5-15)
[2021-08-02] MEDS: Sodium Chloride 0.9% 1,000 ML IV SCH ×3 (13:01→22:47)
[2021-08-02] MEDS ORDERED: Ondansetron 4 MG/2 ML SDV IVPUSH PRN (16:27)
[2021-08-02 16:57] LABS: ANION GAP 25.5 mmol/L (5-15)
[2021-08-02] MEDS: cefTRIAXone 1 GM Vial IVPUSH SCH (19:21)
[2021-08-02] MEDS: Nystatin Crm 15 GM Tube TOP PRN (20:19)
[2021-08-02 22:27] LABS: ANION GAP 25.5 mmol/L (5-15)
[2021-08-03] MEDS: Sodium Chloride 0.9% 1,000 ML IV SCH ×3 (04:32→20:46)
[2021-08-03] MEDS: Nystatin Crm 15 GM Tube TOP PRN ×2 (04:55→18:18)
[2021-08-03 07:48] LABS: ANION GAP 24.9 mmol/L (5-15)
[2021-08-03] MEDS: Acetaminophen 325 MG Tab PO PRN ×2 (08:39→15:54)
[2021-08-03] MEDS: cefTRIAXone 1 GM Vial IVPUSH SCH (18:05)
[2021-08-04] MEDS: Sodium Chloride 0.9% 1,000 ML IV SCH (06:05)
[2021-08-04 07:04] VITALS: BP 126/66; PULSE 74
[2021-08-04 07:52] LABS: ANION GAP 27.7 mmol/L (5-15)
[2021-08-04] MEDS: Acetaminophen 325 MG Tab PO PRN ×2 (09:10→18:33)
[2021-08-04] MEDS ORDERED: HYDROmorphone 1 MG/ML Syringe IVPUSH PRN (11:38)
[2021-08-04] MEDS ORDERED: LORazepam 2 MG/ML SDV IVPUSH PRN (11:41)
[2021-08-04] MEDS: Nystatin Crm 15 GM Tube TOP PRN (14:30)
[2021-08-05] MEDS ORDERED: HYDROmorphone 1 MG/ML Syringe IVPUSH PRN (11:09)
[2021-08-05] MEDS ORDERED: HYDROmorphone 1 MG/ML Syringe IVPUSH SCH (11:15)
[2021-08-05] MEDS ORDERED: Ondansetron 4 MG/2 ML SDV IVPUSH SCH (21:00)
== END 2021-08-05 11:12 | disposition swing bed (61) | DRG 682 ==
LOC: KA.ED 11:58 → KA.MS 13:58 → UNDODISIN 08-05 11:12
PROVIDERS: ADMIT Physician Assistant; ATTEND Family Medicine
DX: N17.9 Acute kidney failure, unspecified (principal); N17.0 Acute kidney failure with tubular necrosis; R62.7 Adult failure to thrive; J96.01 Acute respiratory failure with hypoxia; E87.3 Alkalosis; J44.9 Chronic obstructive pulmonary disease, unspecified; E87.1 Hypo-osmolality and hyponatremia; E46 Unspecified protein-calorie malnutrition; N30.00 Acute cystitis without hematuria; F02.80 Dementia in other diseases classified elsewhere, unspecified severity, without behavioral disturbance, psychotic disturbance, mood disturbance, and anxiety; F02.81 Dementia in other diseases classified elsewhere, unspecified severity, with behavioral disturbance; E87.5 Hyperkalemia; E88.09 Other disorders of plasma-protein metabolism, not elsewhere classified; Z85.41 Personal history of malignant neoplasm of cervix uteri; Z85.89 Personal history of malignant neoplasm of other organs and systems; Z20.822 Contact with and (suspected) exposure to COVID-19; B37.2 Candidiasis of skin and nail; Z66 Do not resuscitate; Z51.5 Encounter for palliative care; R74.8 Abnormal levels of other serum enzymes; E78.5 Hyperlipidemia, unspecified; M19.90 Unspecified osteoarthritis, unspecified site; F32.A Depression, unspecified; G47.00 Insomnia, unspecified; E78.00 Pure hypercholesterolemia, unspecified; I10 Essential (primary) hypertension; K21.9 Gastro-esophageal reflux disease without esophagitis; M54.9 Dorsalgia, unspecified; G89.29 Other chronic pain; F41.9 Anxiety disorder, unspecified; G30.9 Alzheimer's disease, unspecified; E86.0 Dehydration; E03.9 Hypothyroidism, unspecified; E66.9 Obesity, unspecified; Z68.28 Body mass index [BMI] 28.0-28.9, adult; Z85.42 Personal history of malignant neoplasm of other parts of uterus; Z98.49 Cataract extraction status, unspecified eye; Z79.899 Other long term (current) drug therapy; Z90.710 Acquired absence of both cervix and uterus; Z87.891 Personal history of nicotine dependence
CPT/HCPCS: 36415; 51798; 71045; 80048; 80053; 81001; 82550; 82947; 83605; 84100; 84484; 85025; 85379; 87086; 93005; 93010; 99284; 99285-25; A9270-GY; J0696; J1170; J2405; J7030; U0002

== ENCOUNTER 2021-08-05 10:54 | Inpatient (IN) | payer MEDICARE, BC ==
[2021-08-05] MEDS ORDERED: Nystatin Crm 15 GM Tube TOP PRN (11:12)
[2021-08-05] MEDS ORDERED: Acetaminophen 325 MG Tab PO PRN (11:12)
[2021-08-05] MEDS: HYDROmorphone 1 MG/ML Syringe IVPUSH SCH ×2 (12:45→22:05)
[2021-08-05] MEDS: HYDROmorphone 1 MG/ML Syringe IVPUSH PRN (19:33)
[2021-08-05] MEDS: Ondansetron 4 MG/2 ML SDV IVPUSH SCH (22:04)
[2021-08-06] MEDS: HYDROmorphone 1 MG/ML Syringe IVPUSH PRN (04:08)
[2021-08-06] MEDS: Ondansetron 4 MG/2 ML SDV IVPUSH SCH ×2 (09:13→21:32)
[2021-08-06] MEDS: HYDROmorphone 1 MG/ML Syringe IVPUSH SCH ×2 (10:02→21:32)
[2021-08-06] MEDS ORDERED: Ondansetron 4 MG/2 ML SDV IVPUSH PRN (10:08)
[2021-08-06] MEDS: LORazepam 2 MG/ML SDV IVPUSH PRN (17:08)
[2021-08-07] MEDS: LORazepam 2 MG/ML SDV IVPUSH PRN ×4 (02:19→22:08)
[2021-08-07] MEDS: Ondansetron 4 MG/2 ML SDV IVPUSH SCH ×2 (08:39→20:09)
[2021-08-07] MEDS: HYDROmorphone 1 MG/ML Syringe IVPUSH SCH ×2 (08:40→20:09)
[2021-08-08] MEDS: LORazepam 2 MG/ML SDV IVPUSH PRN ×4 (02:26→22:04)
[2021-08-08] MEDS: HYDROmorphone 1 MG/ML Syringe IVPUSH PRN ×3 (03:57→22:04)
[2021-08-08] MEDS: Ondansetron 4 MG/2 ML SDV IVPUSH SCH ×2 (09:13→20:20)
[2021-08-08] MEDS: HYDROmorphone 1 MG/ML Syringe IVPUSH SCH ×2 (09:13→20:23)
[2021-08-09] MEDS: LORazepam 2 MG/ML SDV IVPUSH PRN ×2 (00:28→15:34)
[2021-08-09] MEDS: HYDROmorphone 1 MG/ML Syringe IVPUSH PRN ×3 (00:30→17:41)
[2021-08-09] MEDS ORDERED: Glycopyrrolate 0.2 MG/ML SDV IVPUSH PRN (02:23)
[2021-08-09] MEDS ORDERED: Glycopyrrolate 0.2 MG/ML SDV IVPUSH SCH (03:00)
[2021-08-09] MEDS: Ondansetron 4 MG/2 ML SDV IVPUSH SCH ×2 (09:27→20:19)
[2021-08-09] MEDS: HYDROmorphone 1 MG/ML Syringe IVPUSH SCH ×2 (09:32→20:19)
[2021-08-09] MEDS: Saliva Substitute Oral Spray 120 ML Bottle MUCMEM PRN ×2 (09:36→15:37)
== END 2021-08-09 20:32 | disposition expired | DRG 951 ==
LOC: KA.MS 11:12 → UNDOADMIN 11:12
PROVIDERS: ADMIT Family Medicine; ATTEND Family Medicine
DX: Z51.5 Encounter for palliative care (principal); N17.0 Acute kidney failure with tubular necrosis; E46 Unspecified protein-calorie malnutrition; E78.00 Pure hypercholesterolemia, unspecified; I10 Essential (primary) hypertension; J44.9 Chronic obstructive pulmonary disease, unspecified; K21.9 Gastro-esophageal reflux disease without esophagitis; M54.9 Dorsalgia, unspecified; G89.29 Other chronic pain; Z66 Do not resuscitate; G30.9 Alzheimer's disease, unspecified; F02.80 Dementia in other diseases classified elsewhere, unspecified severity, without behavioral disturbance, psychotic disturbance, mood disturbance, and anxiety; M19.90 Unspecified osteoarthritis, unspecified site; E03.9 Hypothyroidism, unspecified; E66.9 Obesity, unspecified; B37.2 Candidiasis of skin and nail; F41.9 Anxiety disorder, unspecified; F32.A Depression, unspecified; Z79.899 Other long term (current) drug therapy; Z98.49 Cataract extraction status, unspecified eye; Z87.440 Personal history of urinary (tract) infections; Z90.710 Acquired absence of both cervix and uterus; Z68.28 Body mass index [BMI] 28.0-28.9, adult; Z83.3 Family history of diabetes mellitus; Z83.49 Family history of other endocrine, nutritional and metabolic diseases
CPT/HCPCS: A9270-GY; J1170; J2060; J2405; J3490